=== PATIENT | female | born 1970 | race Caucasian/White ===

== ENCOUNTER 2018-11-04 10:10 | Emergency (ER) | payer OTHER ==
[~2018-11-04] VITALS: Ht 162.6 cm; Wt 72.6 kg
--- NOTE | 2018-11-04 11:38 | Diagnostic Imaging Report ---
Exam: Head CT without contrast History: Left eye sensitivity, numbness on left side of face and in left fingers Comparison studies: None Technique: Axial images were obtained from the skull base to the vertex. Coronal and sagittal images reconstructed from the axial data. Dose modulation, iterative reconstruction, and/or weight based adjustment of the mA/kV was utilized to reduce the radiation dose to as low as reasonably achievable. Radiation dose: Total DLP: 921 mGy*cm. Estimated effective dose: DLP x 0.015 Intravenous contrast: None Findings: Scalp: No abnormalities. Bones: No fractures, blastic or lytic lesions. Brain sulci: Appropriate for age. Ventricles: Normal in size and configuration. No hydrocephalus. Extra-axial spaces: Mildly prominent retrocerebellar extra-axial space of CSF density without significant mass effect may be an incidental congenital anatomical variant or small congenital arachnoid cyst. Parenchyma: No abnormal densities. No masses, acute hemorrhage, acute or chronic vascular insults. Sellar/suprasellar region: No abnormalities. Craniocervical junction: Patent foramen magnum. No Chiari one malformation. Included paranasal sinuses: Clear. Middle ear mastoid cavities: Clear. IMPRESSION: No acute abnormalities. Signed by: Dr. Xiang Rodgers M.D. on 11/04/2018 11:34 AM
== END 2018-11-04 12:12 | disposition home or self-care (01) ==
LOC: ER 10:10
DX: G44.219 Episodic tension-type headache, not intractable (principal); R20.2 Paresthesia of skin; M79.645 Pain in left finger(s); H57.12 Ocular pain, left eye; H53.149 Visual discomfort, unspecified; Z83.3 Family history of diabetes mellitus; Z82.49 Family history of ischemic heart disease and other diseases of the circulatory system; Z88.0 Allergy status to penicillin
CPT/HCPCS: 70450; 81025; 99284